=== PATIENT | female | born 1950 | race Hispanic/Latino ===

== ENCOUNTER 2021-09-14 00:23 | Inpatient (IN) | payer OTHER ==
[2021-09-14] VITALS (10 sets, daily range): BP systolic 118–169; BP diastolic 55–87
[~2021-09-14] VITALS: Ht 157.5 cm; Wt 74.6 kg
[~2021-09-14 00:23] MED LIST: AEC81 PO; ALPR0.25 PO; ATOR20TA65 PO; CITA-107 PO; CLOP75TA32 PO; ESCI10TA PO; GABA-531 PO; HYDR12.54 PO; LOSA25TA41 PO; METF-444 PO; METO50TA18 PO
[2021-09-14] MEDS ORDERED: EMPA25TA PO (04:10)
[2021-09-14] MEDS ORDERED: LOSA1TAB37 PO (04:10)
[2021-09-14] MEDS ORDERED: AEC81 PO (04:10)
[2021-09-14] MEDS ORDERED: ATOR40TA69 PO (04:10)
[2021-09-14] MEDS ORDERED: ASCO500T20 PO (04:10)
[2021-09-14] MEDS ORDERED: MELA10CA2 PO (04:10)
[2021-09-14] MEDS ORDERED: INSU100I24 SQ (04:10)
[2021-09-14] MEDS ORDERED: NITROGLYCERIN 0.4 MG SL TAB SL PRN ×2 (06:00→11:00)
[2021-09-14] MEDS ORDERED: ONDANSETRON 4MG INJ IV PRN (06:00)
[2021-09-14] MEDS ORDERED: DEXTROSE 50%-WATER 50 ML DISP.SYRIN IV PRN (06:00)
[2021-09-14] MEDS ORDERED: LACTULOSE 20 GM/30 ML UDCUP PO PRN (06:00)
[2021-09-14] MEDS ORDERED: GUAIFENESIN-DM 200/20 MG 10 ML PO PRN (06:00)
[2021-09-14] MEDS ORDERED: DIPHENHYDRAMINE HCL 25 MG CAPSULE PO PRN (06:00)
[2021-09-14] MEDS ORDERED: GLUCAGON 1MG KIT 1 MG ML IM PRN (06:00)
[2021-09-14] MEDS ORDERED: MAG/ALUM/SIMETH 30 ML UDCUP PO PRN (06:00)
[2021-09-14] MEDS ORDERED: MORPHINE 2 MG SYG IV PRN (06:00)
[2021-09-14] MEDS: 0.9%NACL 1000ML 1,000 ML IV SCH ×2 (06:14→19:20)
[2021-09-14] MEDS: INSULIN HUMULIN R 100 UNIT/ML 3ML SQ SCH ×4 (07:30→20:52)
[2021-09-14] MEDS ORDERED: INSULIN DEGLUDEC SQ SCH (09:00)
[2021-09-14] MEDS: LOSARTAN/HYDROCHLOROTHIAZIDE 50-12.5MG TABLET PO SCH ×2 (09:00→12:06)
[2021-09-14] MEDS: ASPIRIN 81 MG EC TAB PO SCH (09:00)
[2021-09-14] MEDS ORDERED: EMPAGLIFLOZIN 25 MG PO SCH (09:00)
[2021-09-14] MEDS ORDERED: ASCORBIC ACID 500 MG TAB PO SCH (09:00)
[2021-09-14] MEDS ORDERED: NITROGLYCERIN 50MG VIAL ONE (10:06)
[2021-09-14] MEDS ORDERED: IOHEXOL 350 MG/ML 100ML INFUS..BTL IV ONE (10:06)
[2021-09-14] MEDS ORDERED: HEPARIN 10,000 UNIT/10ML (1,000 UNIT/ML) VIAL ONE (10:06)
[2021-09-14] MEDS ORDERED: IOHEXOL-350 50ML VIAL IV ONE (10:06)
[2021-09-14] MEDS ORDERED: MIDAZOLAM HCL 1 MG/ML 2ML VIAL ONE (10:06)
[2021-09-14] MEDS ORDERED: BIVALIRUDIN 250 MG/VIAL IV ONE (10:06)
[2021-09-14] MEDS ORDERED: LIDOCAINE HCL 400MG/20ML VIAL ONE (10:07)
[2021-09-14] MEDS ORDERED: FENTANYL CITRATE PF 50 MCG/1 ML 2ML VIAL ONE (10:07)
[2021-09-14] MEDS ORDERED: LABETALOL 20MG VIAL IV ONE (10:15)
[2021-09-14] MEDS ORDERED: 0.9%NACL 1000ML 1,000 ML IV SCH (11:00)
[2021-09-14] MEDS: AMLODIPINE 5 MG TAB PO SCH ×2 (12:06→18:12)
[2021-09-14] MEDS: LOSARTAN 100 MG TABLET PO SCH ×2 (12:09→17:00)
[2021-09-14] MEDS: ACETAMINOPHEN 325 MG TAB PO PRN ×2 (12:12→22:50)
[2021-09-14 19:21] LABS: ABG BASE EXCESS -2.6 mmol/L (-2.0-3.0); ABG HCO3 20.6 mmol/L (21.0-28.0); ABG OXYGEN SATURATION 96.9 % (95.0-99.0); ABG PCO2 32 mmHg (32-45)
[2021-09-14] MEDS ORDERED: ***HM*** (Melatonin 10 MG) PO SCH (21:00)
[2021-09-14] MEDS: ATORVASTATIN 40 MG TABLET PO SCH (21:03)
[2021-09-14] MEDS ORDERED: ALPRAZOLAM 0.5 MG TABLET PO SCH (21:30)
[2021-09-14] MEDS: METOPROLOL TARTRATE 25 MG TAB PO SCH (23:42)
[2021-09-15] VITALS (54 sets, daily range): BP systolic 89–171; BP diastolic 50–84
[2021-09-15 01:28] LABS: HEMATOCRIT 36.8 % (36-48); MEAN CORPUSCULAR HEMOGLOBIN 30.7 pg (27.0-33.0); MEAN CORPUSCULAR HGB CONC 33.7 g/dL (32.0-36.0); MEAN CORPUSCULAR VOLUME 91.1 fL (79-99); RED BLOOD CELL COUNT(AUTO) 4.04 MIL/uL (4.00-5.50); RED CELL DISTRIBUTION WIDTH 13.2 % (11.0-15.5); WHITE BLOOD COUNT (AUTO) 7.5 K/uL (4.8-10.8)
[2021-09-15 01:41] LABS: INR 1.07 (0.85-1.15); PROTHROMBIN TIME 11.6 SEC (9.6-11.6)
[2021-09-15 01:42] LABS: PARTIAL THROMBOPLASTIN TIME 25.9 SEC (26.3-35.5)
[2021-09-15 01:45] LABS: ALBUMIN 3.6 g/dL (3.5-5.0); BILIRUBIN,TOTAL 0.5 mg/dL (0.2-1.0); CREATININE 0.9 mg/dL (0.5-1.5); POTASSIUM 3.5 mmol/L (3.5-5.1); TOTAL PROTEIN, SERUM 6.7 g/dL (6.0-8.3)
[2021-09-15 01:50] LABS: HEMOGLOBIN A1C 7.9 % (4.0-6.0)
[2021-09-15] MEDS: INSULIN HUMULIN R 100 UNIT/ML 3ML SQ SCH (05:58)
[2021-09-15] MEDS: METOPROLOL TARTRATE 25 MG TAB PO SCH (06:46)
[2021-09-15] MEDS ORDERED: NITROGLYCERIN 50MG/D5W 250ML 1 BOT ONE (07:28)
[2021-09-15] MEDS ORDERED: AMINOCAPROIC ACID 5,000MG VIAL 15,000 MG in 0.9% NACL 500ML IV.SOLN 420 ML IV PRN (07:30)
[2021-09-15] MEDS ORDERED: NOREPINEPHRINE BITARTRATE 8 MG in 0.9% NACL 250ML 250 ML IV PRN (07:30)
[2021-09-15] MEDS ORDERED: EPINEPHRINE PF 1MG AMP 10 MG in 0.9% NACL 250ML 240 ML IV PRN ×2 (07:30→12:00)
[2021-09-15] MEDS ORDERED: CEFAZOLIN SODIUM 1 GM VIAL IVP PRN (08:00)
[2021-09-15] MEDS ORDERED: PAPAVERINE HCL 30 MG/ML 2ML VIAL ONE (08:05)
[2021-09-15] MEDS ORDERED: CEFAZOLIN SODIUM 1 GM VIAL ONE (08:05)
[2021-09-15] MEDS ORDERED: HEPARIN 10,000 UNIT/10ML (1,000 UNIT/ML) VIAL ONE ×2 (08:23→09:20)
[2021-09-15] MEDS ORDERED: FENTANYL CITRATE PF 50 MCG/1 ML 20ML VIAL IJ ONE (08:23)
[2021-09-15] MEDS ORDERED: EPINEPHRINE PF 1MG AMP ONE (08:23)
[2021-09-15] MEDS ORDERED: PROPOFOL 10 MG/ML 20ML VIAL IV ONE (08:23)
[2021-09-15] MEDS ORDERED: NOREPINEPHRINE BITARTRATE 1 MG/1 ML ML IV ONE (08:23)
[2021-09-15] MEDS ORDERED: MIDAZOLAM HCL 1 MG/ML 2ML VIAL ONE (08:23)
[2021-09-15] MEDS ORDERED: LIDOCAINE PF 100MG/5ML (2%) SYRINGE 5ML ONE (08:23)
[2021-09-15] MEDS ORDERED: SODIUM BICARB 50MEQ 50ML VIAL 150 ML ONE (08:23)
[2021-09-15] MEDS ORDERED: AMINOCAPROIC ACID 5,000MG VIAL ONE (08:23)
[2021-09-15] MEDS ORDERED: ROCURONIUM 10MG/1ML SYR 10 MG/ML ML ONE (08:23)
[2021-09-15] MEDS ORDERED: ESMOLOL HCL 10 MG/ML 10 ML VIAL ONE (08:23)
[2021-09-15] MEDS ORDERED: PROTAMINE SULFATE 10 MG/ML 25ML VIAL IV ONE (08:23)
[2021-09-15] MEDS ORDERED: KETAMINE 50MG/ML SYRINGE 50 MG/ML DISP.SYRIN IV ONE (08:24)
[2021-09-15] MEDS: ASPIRIN 81 MG EC TAB PO SCH (09:00)
[2021-09-15 09:13] LABS: ABG HCO3 19.4 mmol/L (21.0-28.0); ABG OXYGEN SATURATION 99.4 % (95.0-99.0); ABG PCO2 38 mmHg (32-45)
[2021-09-15] MEDS ORDERED: POTASSIUM CHLORIDE 20MEQ/100ML 100 ML IV ONE (09:21)
[2021-09-15 11:32] LABS: ABG BASE EXCESS -4.9 mmol/L (-2.0-3.0); ABG OXYGEN SATURATION 99.1 % (95.0-99.0); ABG PCO2 37 mmHg (32-45)
[2021-09-15] MEDS ORDERED: 0.9%NACL 10ML VIAL IVP PRN (12:00)
[2021-09-15] MEDS ORDERED: ACETAMINOPHEN 325 MG TAB PO PRN (12:00)
[2021-09-15] MEDS ORDERED: ALBUMIN (HUMAN) 5% 250 ML IV PRN (12:00)
[2021-09-15] MEDS ORDERED: ASPIRIN 81MG CHEW TAB NG ONE (12:00)
[2021-09-15] MEDS ORDERED: INSULIN REGULAR, HUMAN 3ML 100 UNIT in 0.9%NACL 100ML 99 ML IV SCH ×2 (12:00)
[2021-09-15] MEDS ORDERED: TRAMADOL HCL 50 MG TABLET PO PRN (12:00)
[2021-09-15] MEDS ORDERED: MORPHINE 4 MG SYG IV PRN (12:00)
[2021-09-15] MEDS ORDERED: HYDROCODONE/ACETAMINOPHEN 5/325 MG TAB PO PRN (12:00)
[2021-09-15] MEDS ORDERED: 0.9% NACL 500ML IV.SOLN 500 ML IV SCH (12:00)
[2021-09-15] MEDS ORDERED: DEXTROSE 50%-WATER 50 ML DISP.SYRIN IV PRN (12:00)
[2021-09-15] MEDS ORDERED: CALCIUM GLUC 1GM 1 GM in 0.9%NACL 50ML 50 ML IV PRN (12:00)
[2021-09-15] MEDS ORDERED: AMINOCAPROIC ACID 5,000MG VIAL 15,000 MG in 0.9% NACL 250ML 250 ML IV SCH (12:00)
[2021-09-15] MEDS ORDERED: NOREPINEPHRIN 4MG/NS 250ML 250 ML IV PRN (12:00)
[2021-09-15] MEDS ORDERED: POTASSIUM PHOS 15 mMOL+NS250ML 250 ML IV PRN (12:00)
[2021-09-15] MEDS ORDERED: PROPOFOL 1000 MG/100 ML 100 ML IV PRN (12:00)
[2021-09-15] MEDS ORDERED: 0.9%NACL 1000ML 1,000 ML IV SCH (12:00)
[2021-09-15] MEDS ORDERED: MAGNESIUM 2GM PREMIX 50ML 50 ML IV PRN (12:00)
[2021-09-15] MEDS ORDERED: GLUCAGON 1MG KIT 1 MG ML IM PRN (12:00)
[2021-09-15] MEDS ORDERED: ACETAMINOPHEN 650 MG SUPPOSITORY RC PRN (12:00)
[2021-09-15] MEDS ORDERED: MORPHINE 2 MG SYG IV PRN (12:00)
[2021-09-15] MEDS ORDERED: NITROGLYCERIN 50MG/D5W 250ML 250 BOT IV SCH (12:00)
[2021-09-15] MEDS ORDERED: ALBUMIN (HUMAN) 5% 250 ML IV ONE (12:01)
[2021-09-15 12:24] LABS: ABG HCO3 22.4 mmol/L (21.0-28.0); ABG OXYGEN SATURATION 97.8 % (95.0-99.0); ABG PCO2 36 mmHg (32-45)
[2021-09-15] MEDS: SODIUM BICARB 50MEQ 50ML VIAL IV PRN ×2 (12:27→18:33)
[2021-09-15] MEDS: POTASSIUM CHLORIDE 20MEQ/100ML 100 ML IV PRN ×5 (12:28→18:33)
[2021-09-15 12:31] LABS: HEMATOCRIT 22.5 % (36-48); MEAN CORPUSCULAR HGB CONC 34.2 g/dL (32.0-36.0); MEAN CORPUSCULAR VOLUME 93.4 fL (79-99); RED BLOOD CELL COUNT(AUTO) 2.41 MIL/uL (4.00-5.50); RED CELL DISTRIBUTION WIDTH 13.4 % (11.0-15.5); WHITE BLOOD COUNT (AUTO) 21.1 K/uL (4.8-10.8)
[2021-09-15 12:39] LABS: INR 1.28 (0.85-1.15); PROTHROMBIN TIME 13.8 SEC (9.6-11.6)
[2021-09-15 12:40] LABS: PARTIAL THROMBOPLASTIN TIME 26.7 SEC (26.3-35.5)
[2021-09-15 12:42] LABS: CREATININE 0.7 mg/dL (0.5-1.5); MAGNESIUM 1.4 mg/dL (1.80-2.40); PHOSPHORUS 3.5 mg/dL (2.5-4.9); POTASSIUM 3.2 mmol/L (3.5-5.1)
[2021-09-15 14:19] LABS: ABG BASE EXCESS -0.7 mmol/L (-2.0-3.0); ABG HCO3 22.7 mmol/L (21.0-28.0); ABG OXYGEN SATURATION 98.1 % (95.0-99.0); ABG PCO2 33 mmHg (32-45)
[2021-09-15 15:28] LABS: ABG HCO3 22.9 mmol/L (21.0-28.0); ABG OXYGEN SATURATION 98.4 % (95.0-99.0); ABG PCO2 32 mmHg (32-45)
[2021-09-15 15:35] LABS: HEMATOCRIT 31.5 % (36-48)
[2021-09-15 15:48] LABS: CREATININE 0.8 mg/dL (0.5-1.5); MAGNESIUM 2.4 mg/dL (1.80-2.40); POTASSIUM 3.5 mmol/L (3.5-5.1)
[2021-09-15] MEDS: CEFAZOLIN SODIUM 1 GM VIAL IVP SCH (16:15)
[2021-09-15 16:35] LABS: ABG BASE EXCESS -0.5 mmol/L (-2.0-3.0); ABG HCO3 22.2 mmol/L (21.0-28.0); ABG OXYGEN SATURATION 98.2 % (95.0-99.0); ABG PCO2 30 mmHg (32-45)
[2021-09-15 18:31] LABS: ABG HCO3 23.3 mmol/L (21.0-28.0); ABG OXYGEN SATURATION 98.1 % (95.0-99.0); ABG PCO2 37 mmHg (32-45)
[2021-09-15 19:33] LABS: ABG BASE EXCESS 2.4 mmol/L (-2.0-3.0); ABG HCO3 26.2 mmol/L (21.0-28.0); ABG OXYGEN SATURATION 97.4 % (95.0-99.0); ABG PCO2 37 mmHg (32-45)
[2021-09-15] MEDS: TRAMADOL HCL 50 MG TABLET PO PRN (20:50)
[2021-09-15] MEDS: ATORVASTATIN 40 MG TABLET PO SCH (21:02)
[2021-09-15] MEDS: FAMOTIDINE 20MG VIAL IV SCH (21:02)
[2021-09-16] VITALS (24 sets, daily range): BP systolic 85–158; BP diastolic 40–96
[2021-09-16] MEDS: CEFAZOLIN SODIUM 1 GM VIAL IVP SCH ×2 (00:49→08:19)
[2021-09-16] MEDS ORDERED: DEXTROSE 5%-LACTATED RINGERS 1,000 ML IV ONE (01:11)
[2021-09-16 03:28] LABS: HEMATOCRIT 29.2 % (36-48); MEAN CORPUSCULAR HEMOGLOBIN 30.6 pg (27.0-33.0); MEAN CORPUSCULAR HGB CONC 33.2 g/dL (32.0-36.0); MEAN CORPUSCULAR VOLUME 92.1 fL (79-99); RED BLOOD CELL COUNT(AUTO) 3.17 MIL/uL (4.00-5.50); RED CELL DISTRIBUTION WIDTH 15.7 % (11.0-15.5); WHITE BLOOD COUNT (AUTO) 12.7 K/uL (4.8-10.8)
[2021-09-16 03:39] LABS: INR 0.99 (0.85-1.15); PROTHROMBIN TIME 10.8 SEC (9.6-11.6)
[2021-09-16 03:49] LABS: MAGNESIUM 2.1 mg/dL (1.80-2.40); PHOSPHORUS 3.4 mg/dL (2.5-4.9)
[2021-09-16 04:00] LABS: CREATININE 0.8 mg/dL (0.5-1.5); POTASSIUM 3.8 mmol/L (3.5-5.1)
[2021-09-16] MEDS: POTASSIUM CHLORIDE 20MEQ/100ML 100 ML IV PRN (04:08)
[2021-09-16] MEDS: TRAMADOL HCL 50 MG TABLET PO PRN ×2 (04:15→10:03)
[2021-09-16 04:17] LABS: ABG BASE EXCESS -0.4 mmol/L (-2.0-3.0); ABG HCO3 24.9 mmol/L (21.0-28.0); ABG OXYGEN SATURATION 95.6 % (95.0-99.0); ABG PCO2 44 mmHg (32-45)
[2021-09-16] MEDS ORDERED: PHARMACY COMMUNICATION MISC SCH (05:00)
[2021-09-16] MEDS: FAMOTIDINE 20MG VIAL IV SCH ×2 (08:19→21:12)
[2021-09-16] MEDS: ASPIRIN 81 MG EC TAB PO SCH (08:20)
[2021-09-16] MEDS: FUROSEMIDE 20MG VIAL IV SCH ×2 (08:20→21:12)
[2021-09-16] MEDS: ONDANSETRON 4MG INJ IV PRN ×2 (08:56→12:12)
[2021-09-16] MEDS ORDERED: KETOROLAC 30MG VIAL (30MG/ML) IM SCH (15:00)
[2021-09-16] MEDS ORDERED: KETOROLAC 15MG/ML VIAL (15MG/ML) IM PRN (21:00)
[2021-09-16] MEDS: ATORVASTATIN 40 MG TABLET PO SCH (21:12)
[2021-09-17] VITALS (20 sets, daily range): BP systolic 82–172; BP diastolic 48–78
[2021-09-17 05:01] LABS: HEMATOCRIT 26.2 % (36-48); MEAN CORPUSCULAR HEMOGLOBIN 30.3 pg (27.0-33.0); MEAN CORPUSCULAR HGB CONC 32.1 g/dL (32.0-36.0); MEAN CORPUSCULAR VOLUME 94.6 fL (79-99); RED BLOOD CELL COUNT(AUTO) 2.77 MIL/uL (4.00-5.50); RED CELL DISTRIBUTION WIDTH 15.6 % (11.0-15.5); WHITE BLOOD COUNT (AUTO) 13.6 K/uL (4.8-10.8)
[2021-09-17 05:19] LABS: POTASSIUM 3.5 mmol/L (3.5-5.1)
[2021-09-17] MEDS: TRAMADOL HCL 50 MG TABLET PO PRN (05:39)
[2021-09-17] MEDS: ONDANSETRON 4MG INJ IV PRN (06:09)
[2021-09-17] MEDS: FUROSEMIDE 20 MG TABLET PO SCH ×2 (08:38→17:53)
[2021-09-17] MEDS: FAMOTIDINE 20MG VIAL IV SCH (08:38)
[2021-09-17] MEDS: ASPIRIN 81 MG EC TAB PO SCH (08:38)
[2021-09-17] MEDS: METOPROLOL TARTRATE 25 MG TAB PO SCH ×2 (08:39→20:35)
[2021-09-17] MEDS: CEFTRIAXONE 1G VIAL IVP SCH (17:54)
[2021-09-17] MEDS: ATORVASTATIN 40 MG TABLET PO SCH (20:35)
[2021-09-17] MEDS: FAMOTIDINE 20MG TAB PO SCH (20:36)
[2021-09-17] MEDS ORDERED: LIDOCAINE HCL-MPF 1% 2ML VIAL IV PRN (22:00)
[2021-09-17] MEDS ORDERED: POTASSIUM CHLORIDE 10% ELIXIR 20 MEQ/15 ML UDCUP PO PRN (22:00)
[2021-09-18] VITALS (7 sets, daily range): BP systolic 103–123; BP diastolic 47–66
[2021-09-18] MEDS: ACETAMINOPHEN 325 MG TAB PO PRN ×2 (00:13→22:42)
[2021-09-18 04:23] LABS: HEMATOCRIT 24.3 % (36-48); MEAN CORPUSCULAR HEMOGLOBIN 30.1 pg (27.0-33.0); MEAN CORPUSCULAR HGB CONC 32.1 g/dL (32.0-36.0); MEAN CORPUSCULAR VOLUME 93.8 fL (79-99); NUCLEATED RED BLOOD CELLS 0.2 % (0.0-0.19); RED BLOOD CELL COUNT(AUTO) 2.59 MIL/uL (4.00-5.50); RED CELL DISTRIBUTION WIDTH 14.7 % (11.0-15.5); WHITE BLOOD COUNT (AUTO) 11.8 K/uL (4.8-10.8)
[2021-09-18 04:41] LABS: CREATININE 0.9 mg/dL (0.5-1.5); POTASSIUM 3.5 mmol/L (3.5-5.1)
[2021-09-18] MEDS: KCL 20 MEQ ERTAB PO PRN ×2 (05:27→09:23)
[2021-09-18] MEDS: FAMOTIDINE 20MG TAB PO SCH ×2 (09:21→20:53)
[2021-09-18] MEDS: METOPROLOL TARTRATE 25 MG TAB PO SCH ×2 (09:21→20:52)
[2021-09-18] MEDS: ASPIRIN 81 MG EC TAB PO SCH (09:21)
[2021-09-18] MEDS: ENOXAPARIN SODIUM 30 MG/0.3 ML SQ SCH (09:21)
[2021-09-18] MEDS: FUROSEMIDE 20 MG TABLET PO SCH ×2 (09:21→16:39)
[2021-09-18] MEDS: LACTULOSE 20 GM/30 ML UDCUP PO PRN ×2 (11:10→21:00)
[2021-09-18] MEDS: LOSARTAN 25 MG TABLET PO SCH (13:21)
[2021-09-18] MEDS: CEFTRIAXONE 1G VIAL IVP SCH (16:39)
[2021-09-18] MEDS: ATORVASTATIN 40 MG TABLET PO SCH (20:53)
[2021-09-19 03:27] VITALS: BP 120/63
[2021-09-19 03:57] LABS: HEMATOCRIT 23.2 % (36-48); MEAN CORPUSCULAR HEMOGLOBIN 30.8 pg (27.0-33.0); MEAN CORPUSCULAR HGB CONC 33.2 g/dL (32.0-36.0); MEAN CORPUSCULAR VOLUME 92.8 fL (79-99); RED BLOOD CELL COUNT(AUTO) 2.5 MIL/uL (4.00-5.50); RED CELL DISTRIBUTION WIDTH 14.4 % (11.0-15.5); WHITE BLOOD COUNT (AUTO) 8.9 K/uL (4.8-10.8)
[2021-09-19 04:06] LABS: CREATININE 0.9 mg/dL (0.5-1.5); POTASSIUM 3.3 mmol/L (3.5-5.1)
[2021-09-19] MEDS: KCL 20 MEQ ERTAB PO PRN ×2 (06:12→08:22)
[2021-09-19 07:00] VITALS: BP 130/72
[2021-09-19] MEDS: ASPIRIN 81 MG EC TAB PO SCH (08:20)
[2021-09-19] MEDS: LOSARTAN 25 MG TABLET PO SCH (08:20)
[2021-09-19] MEDS: FAMOTIDINE 20MG TAB PO SCH (08:20)
[2021-09-19] MEDS: FUROSEMIDE 20 MG TABLET PO SCH (08:22)
[2021-09-19] MEDS: METOPROLOL TARTRATE 25 MG TAB PO SCH (08:26)
[2021-09-19] MEDS: ENOXAPARIN SODIUM 30 MG/0.3 ML SQ SCH (08:27)
[2021-09-19] MEDS: ACETAMINOPHEN 325 MG TAB PO PRN (10:10)
[2021-09-19 11:00] VITALS: BP 122/66
== END 2021-09-19 14:46 | DRG 233 ==
LOC: 2DH 03:24 → 2CV 09-15 08:58 → 2BH 09-16 07:17 → 2DH 09-17 23:26
PROVIDERS: ADMIT Internal Medicine; ATTEND Internal Medicine
PROC: 4A023N7 Measurement of Cardiac Sampling and Pressure, Left Heart, Percutaneous Approach (ICD-10-PCS; 2021-09-14)
PROC: B2111ZZ Fluoroscopy of Multiple Coronary Arteries using Low Osmolar Contrast (ICD-10-PCS; 2021-09-14)
PROC: B2151ZZ Fluoroscopy of Left Heart using Low Osmolar Contrast (ICD-10-PCS; 2021-09-14)
PROC: B3121ZZ Fluoroscopy of Left Subclavian Artery using Low Osmolar Contrast (ICD-10-PCS; 2021-09-14)
PROC: 06BQ4ZZ Excision of Left Saphenous Vein, Percutaneous Endoscopic Approach (ICD-10-PCS; 2021-09-15)
PROC: 5A1221Z Performance of Cardiac Output, Continuous (ICD-10-PCS; 2021-09-15)
PROC: 30233R1 Transfusion of Nonautologous Platelets into Peripheral Vein, Percutaneous Approach (ICD-10-PCS; 2021-09-15)
PROC: 30233N1 Transfusion of Nonautologous Red Blood Cells into Peripheral Vein, Percutaneous Approach (ICD-10-PCS; 2021-09-15)
PROC: 02100Z9 Bypass Coronary Artery, One Artery from Left Internal Mammary, Open Approach (ICD-10-PCS; principal; 2021-09-15 08:30)
PROC: 021009W Bypass Coronary Artery, One Artery from Aorta with Autologous Venous Tissue, Open Approach (ICD-10-PCS; 2021-09-15 08:30)
DX: I21.4 Non-ST elevation (NSTEMI) myocardial infarction (principal); I50.33 Acute on chronic diastolic (congestive) heart failure; B20 Human immunodeficiency virus [HIV] disease; I25.10 Atherosclerotic heart disease of native coronary artery without angina pectoris; E11.51 Type 2 diabetes mellitus with diabetic peripheral angiopathy without gangrene; R51.9 Headache, unspecified; E78.5 Hyperlipidemia, unspecified; Z79.899 Other long term (current) drug therapy; Z82.5 Family history of asthma and other chronic lower respiratory diseases; Z84.1 Family history of disorders of kidney and ureter; Z90.49 Acquired absence of other specified parts of digestive tract; Z88.8 Allergy status to other drugs, medicaments and biological substances; I11.0 Hypertensive heart disease with heart failure; E78.00 Pure hypercholesterolemia, unspecified; Z79.82 Long term (current) use of aspirin; I95.9 Hypotension, unspecified
CPT/HCPCS: 36415; 36430; 36600; 70450; 71045; 80048; 80053; 80061; 82435; 82803; 82947; 82948; 83036; 83605; 83735; 83880; 84100; 84132; 84295; 85014; 85018; 85027; 85384; 85610; 85730; 86850; 86900; 86901; 86923; 87040; 87071; 87077; 87186; 87205; 93005; 93458; 93880; 94002; 94010; 94150; 97039; 99156; 99157; A7048; C1894; G0378; J0171; J0583; J0690; J0696; J1644; J1650; J1815; J1885; J1940; J2001; J2250; J2405; J2440; J2704; J2720; J3010; J3475; J3480; J3490; J7030; J7040; P9016; P9034; P9045; Q9967